=== PATIENT | male | born 1935 | race African-American/Black ===

== ENCOUNTER 2020-02-20 12:15 | Inpatient (IN) | payer OTHER ==
[~2020-02-20] VITALS: Ht 167.6 cm; Wt 79.0 kg
[2020-02-20 12:51] VITALS: BP 107/60
[2020-02-20 13:09] LABS: HEMOGLOBIN 8.8 gm/dL (14.0-18.0)
[2020-02-20 13:11] LABS: HEMATOCRIT 27.2 % (42.0-52.0); MCH 27.5 pg (26.0-34.0); MCHC 32.3 g/dL (28.0-37.0); RDW 18.1 % (10.5-14.5); WBC 4.3 thou/uL (4.0-11.0)
[2020-02-20 13:31] LABS: CALCIUM 9.2 mg/dL (8.5-10.1); CREATININE 2.7 mg/dL (0.7-1.3); POTASSIUM 3.8 mmol/L (3.5-5.1)
[2020-02-20 13:37] LABS: ALBUMIN 3.4 g/dL (3.4-5.0); TOTAL BILIRUBIN 1.8 mg/dL (0.2-1.0); TOTAL PROTEIN 8.4 g/dL (6.4-8.2)
[2020-02-20 13:40] LABS: URINE BILIRUBIN NEGATIVE (Negative); URINE BLOOD NEGATIVE (Negative); URINE CLARITY CLEAR; URINE COLOR YELLOW; URINE GLUCOSE-RANDOM* NEGATIVE (Negative); URINE KETONES NEGATIVE (Negative); URINE LEUKOCYTES-REFLEX NEGATIVE (Negative); URINE NITRITE-REFLEX NEGATIVE (Negative); URINE PROTEIN (DIPSTICK) NEGATIVE (Negative); URINE SPECIFIC GRAVITY 1.015 (1.005-1.035)
[2020-02-20 13:48] LABS: AMP/METHAMP Negative (Negative); BARBITURATES Negative (Negative); BENZODIAZEPINES Negative (Negative); COCAINE Negative (Negative); METHADONE Negative (Negative); OPIATES Negative (Negative); PCP Negative (Negative)
[2020-02-20 14:22] LABS: ABSOLUTE NEUTROPHILS 3.2 thou/uL (1.4-8.2); ANISOCYTOSIS 2+
[2020-02-20 14:23] LABS: LARGE PLATELETS OCCASIONAL; PLATELET COUNT 79 thou/uL (150-400)
[2020-02-20 15:16] VITALS: BP 110/72
[2020-02-20 17:13] VITALS: BP 125/71
[2020-02-20 19:00] LABS: TSH 1.012 uIU/mL (0.358-3.740)
[2020-02-20 20:01] VITALS: BP 136/83
[2020-02-21 05:23] LABS: HEMATOCRIT 27.3 % (42.0-52.0); HEMOGLOBIN 8.7 gm/dL (14.0-18.0); MCH 27.2 pg (26.0-34.0); MCHC 31.9 g/dL (28.0-37.0); MCV 85.2 fL (80.0-100.0); PLATELET COUNT 75 thou/uL (150-400); RDW 18.2 % (10.5-14.5); WBC 4.2 thou/uL (4.0-11.0)
[2020-02-21 06:19] LABS: CALCIUM 9.3 mg/dL (8.5-10.1); CREATININE 2.8 mg/dL (0.7-1.3); MAGNESIUM 2.7 mg/dL (1.8-2.4); POTASSIUM 4.1 mmol/L (3.5-5.1)
[2020-02-21 06:31] LABS: ALBUMIN 3.3 g/dL (3.4-5.0); DIRECT BILIRUBIN 0.6 mg/dL (<0.1-0.2); TOTAL BILIRUBIN 1.4 mg/dL (0.2-1.0); TOTAL PROTEIN 8.2 g/dL (6.4-8.2)
[2020-02-21 09:00] VITALS: BP 146/80
[2020-02-21 10:33] LABS: ABSOLUTE NEUTROPHILS 2.8 thou/uL (1.4-8.2)
[2020-02-21 10:34] LABS: ANISOCYTOSIS 2+
[2020-02-21 20:20] VITALS: BP 128/67
[2020-02-22 13:23] VITALS: BP 129/68
[2020-02-22 17:45] VITALS: BP 97/57
[2020-02-22 19:51] VITALS: BP 136/72
[2020-02-22 20:30] VITALS: BP 130/73
[2020-02-22 20:40] VITALS: BP 130/73
[2020-02-22 21:30] VITALS: BP 114/74
[2020-02-23 08:47] VITALS: BP 148/76
[2020-02-23 19:25] VITALS: BP 139/62
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
--- NOTE | 2020-02-24 07:26 | EKG ---
[facility] [place] [address] ELECTROCARDIOGRAM REPORT Name: SANDRO BENAVIDES V Room #: 51-A ADM IN M.R.#: [id number] Admission: 02/20/20 Attend Phys: Camacho Beckett DO Discharge: Date of : 35 Report #: [id number] THIS REPORT FOR: cc: Britt Lua MD, Malathi MD Lundgren,Everett Amaral MD [facility] ~ THIS REPORT FOR: //name// [facility] ED Test Date: 2020-02-20 Test Time: 14:28:10 Pat Name: SANDRO BENAVIDES Department: Room: [facility] Gender: M Business Support: navjot : 1935 Requested By: Leoncio Stapleton Order Number: [id number] MD: Everett Mena Measurements Intervals Brilliant Rate: 47 P: 29 AL: 255 QRS: 24 QRSD: 100 T: 192 QT: 502 QTc: 444 Interpretive Statements Sinus bradycardia Prolonged AL interval Poor R wave progression Nonspecific T wave abnormality Baseline wander in lead(s) II,III,aVL,aVF,V4,V5 No previous ECG available for comparison Electronically Signed On 02-24-2020 7:26:07 CDT by Everett Mena [email or web address] <ELECTRONICALLY SIGNED> By: Everett Mena MD, [facility] 02/24/20 0726 1428 1428 Everett Mena MD, [facility] /EPI
[2020-02-24 07:46] VITALS: BP 143/74
[2020-02-24 19:57] VITALS: BP 143/73
[2020-02-24 22:00] VITALS: BP 143/73
[2020-02-25 06:11] LABS: ALBUMIN 3.6 g/dL (3.4-5.0); CALCIUM 9.2 mg/dL (8.5-10.1); CREATININE 2.6 mg/dL (0.7-1.3); PHOSPHORUS 3.5 mg/dL (2.5-4.9); POTASSIUM 4.1 mmol/L (3.5-5.1)
[2020-02-25 08:53] VITALS: BP 127/77
[2020-02-25 20:37] VITALS: BP 124/78
[2020-02-26 17:13] VITALS: BP 124/74
[2020-02-26 20:31] VITALS: BP 118/61
[2020-02-27 07:53] VITALS: BP 125/91; BP 133/80
[2020-02-27 19:36] VITALS: BP 127/65
[2020-02-28 10:59] VITALS: BP 120/84
[2020-02-28] MEDS ORDERED: LIPITOR10 MG PO (12:20)
[2020-02-28] MEDS ORDERED: COREG6.25 MG PO (12:21)
[2020-02-28] MEDS ORDERED: SEROQUEL 100 M100 M1 PO (12:21)
[2020-02-28] MEDS ORDERED: TORSEMIDE20 MG PO (12:22)
[2020-02-28] MEDS ORDERED: FLONASE 0.05%50 MCG NASAL (12:23)
[2020-02-28] MEDS ORDERED: PEPCID20 MG PO (12:23)
[2020-02-28] MEDS ORDERED: B-12500 MCG PO (12:23)
== END 2020-02-28 13:00 | DRG 884 ==
LOC: ER 12:15 → EROBS 14:38 → SBH 14:38
PROVIDERS: Emergency Medicine; Hospitalist; Nurse Practitioner; ADMIT Psychiatry & Neurology Psychiatry; ATTEND Psychiatry & Neurology Psychiatry
DX: F01.51 Vascular dementia, unspecified severity, with behavioral disturbance (principal); N18.9 Chronic kidney disease, unspecified; I13.0 Hypertensive heart and chronic kidney disease with heart failure and stage 1 through stage 4 chronic kidney disease, or unspecified chronic kidney disease; F03.91 Unspecified dementia, unspecified severity, with behavioral disturbance; F29 Unspecified psychosis not due to a substance or known physiological condition; E78.5 Hyperlipidemia, unspecified; I50.9 Heart failure, unspecified; D63.1 Anemia in chronic kidney disease; Z90.49 Acquired absence of other specified parts of digestive tract; Z79.899 Other long term (current) drug therapy; Z03.818 Encounter for observation for suspected exposure to other biological agents ruled out
CPT/HCPCS: 10880